=== PATIENT | female | born 1995 | race Caucasian/White ===

== ENCOUNTER 2020-11-11 10:33 | Day surgery (SDC) | payer OTHER ==
[2020-11-11] MEDS ORDERED: hydrALAZINE 20 MG/ML VIAL SLOW IVP PRN ×2 (11:40→17:45)
[2020-11-11 11:53] LABS: Bilirubin Neg (Negative); Blood, Urine 10 (Negative); Clarity Slightly Cloudy (Clear); Glucose, Urine (Dipstick) 250 mg/dL (Negative); Ketone, Urine 5 mg/dL (Negative); Leukocyte Negative (Negative); Nitrite Negative (Negative); Protein, Urine (Dipstick) 30 mg/dl (Neg-Trace); Urobilinogen Normal mg/dL (Less than 2)
[2020-11-11 12:06] LABS: Bacteria/HPF 1+ HPF (None Seen); RBC/HPF 0-3 HPF (0-3); Squamous Epithelial 0-3 HPF (0-3); WBC/HPF 0-3 HPF (0-3)
[2020-11-11] MEDS ORDERED: Fioricet 325/50/40 mg Tablet PO PRN (15:34)
[2020-11-11 16:15] LABS: #Eosinphils 0.1 10x3/uL (0.0-0.5); #Monocytes 0.6 10x3/uL (0.0-1.1); #Neutrophils 9.7 10x3/uL (1.5-8.4); %Basophils 0.2 % (0.0-2.0); %Eosinophils 0.4 % (0.0-6.0); %Lymphocytes 14.2 % (18.0-47.0); %Monocytes 4.7 % (0.0-10.0); %Neutrophils 79.8 % (40.0-75.0); Hemoglobin 11.8 g/dL (12.0-15.5); Mean Corpuscular HGB CONC 34.2 g/dL (32.0-36.0); Mean Corpuscular Hemoglobin 31.9 pg (27.0-33.0); Mean Corpuscular Volume 93.2 fl (81.6-98.3); Mean Platelet Volume 13.3 fl (7.4-10.4); White Blood Cell (WBC) Count 12.1 10x3/uL (3.5-10.5)
[2020-11-11 16:17] LABS: ALT (SGPT) 19 U/L (8-55); AST (SGOT) 15 U/L (5-34); Albumin 3.4 g/dL (3.5-5.0); Alkaline Phosphatase 65 U/L (40-110); Anion Gap 14 mmol/L (10-20); BUN (Urea Nitrogen) 5 mg/dL (7.0-18.7); Bilirubin, Total 0.2 mg/dL (0.2-1.2); Calc. Creatinine Clearance 0 mL/min (70-130); Calcium 8.9 mg/dL (7.8-10.44); Carbon Dioxide 21 mmol/L (22-29); Chloride 106 mmol/L (98-107); Globulin 2.7 g/dL (2.4-3.5); Glucose 118 mg/dL (70-105); Potassium 3.6 mmol/L (3.5-5.1); Protein, Total 6.1 g/dL (6.0-8.3); Sodium 137 mmol/L (136-145)
[2020-11-11 17:02] LABS: Creatinine, Urine 275.74 mg/dL (47-110)
[2020-11-11 17:08] LABS: Platelet Count 159 10x3/uL (150-450)
== END 2020-11-11 17:42 | disposition home or self-care (01) ==
LOC: CSHLD/OP 10:33
PROVIDERS: ATTEND Obstetrics & Gynecology
DX: O14.02 Mild to moderate pre-eclampsia, second trimester (principal); O99.332 Smoking (tobacco) complicating pregnancy, second trimester; F17.290 Nicotine dependence, other tobacco product, uncomplicated; Z3A.27 27 weeks gestation of pregnancy
CPT/HCPCS: 80053; 81001; 82570; 84156; 84550; 85025; 87086; 99284; 99285

== ENCOUNTER 2022-03-28 12:57 | Emergency (ER) | payer OTHER ==
[2022-03-28 14:07] LABS: Bilirubin Neg (Negative); Blood, Urine 250 (Negative); Glucose, Urine (Dipstick) Normal (Negative); Ketone, Urine 5 mg/dL (Negative); Leukocyte 500 (Negative); Nitrite Negative (Negative); Protein, Urine (Dipstick) 30 mg/dl (Neg-Trace); Specific Gravity, Urine 1.015 (1.005-1.030)
[2022-03-28 14:09] LABS: Clarity Cloudy (Clear)
[2022-03-28 14:18] LABS: RBC/HPF 0-3 HPF (0-3)
[2022-03-28 14:19] LABS: Bacteria/HPF Rare-Few HPF (None Seen)
== END 2022-03-28 14:00 | disposition home or self-care (01) ==
LOC: CSHERS 12:57
DX: O20.0 Threatened abortion (principal); O99.332 Smoking (tobacco) complicating pregnancy, second trimester; F17.290 Nicotine dependence, other tobacco product, uncomplicated; Z3A.14 14 weeks gestation of pregnancy
CPT/HCPCS: 81003; 81015; 99284

== ENCOUNTER 2022-09-16 09:34 | Inpatient (IN) | payer OTHER ==
[~2022-09-16 09:34] MED LIST: Bupivacaine 0.25% HCL 30 ML VIAL ONE
[2022-09-16] MEDS ORDERED: Promethazine HCl 25 MG/ML VIAL IM PRN ×3 (10:45→17:37)
[2022-09-16] MEDS ORDERED: Ibuprofen 800 MG TAB PO PRN (10:45)
[2022-09-16] MEDS ORDERED: Lidocaine 1% (PF) 30 ML VIAL SC PRN (10:45)
[2022-09-16] MEDS ORDERED: Misoprostol 200 MCG TAB PR PRN (10:45)
[2022-09-16] MEDS ORDERED: Butorphanol Tartrate 1 MG/ML VIAL SLOW IVP PRN (10:45)
[2022-09-16] MEDS ORDERED: Ondansetron PF 4 MG/2 ML Vial IVP PRN ×3 (10:45→17:37)
[2022-09-16] MEDS ORDERED: Diphenoxylate HCl/Atropine Tablet PO PRN ×2 (10:45)
[2022-09-16] MEDS ORDERED: HYDROcodone/Acetaminophen 5/325 mg Tablet PO PRN ×3 (10:45→17:37)
[2022-09-16] MEDS ORDERED: hydrALAZINE 20 MG/ML VIAL SLOW IVP PRN ×2 (10:45→17:37)
[2022-09-16] MEDS ORDERED: Acetaminophen 500 MG TAB PO PRN (10:45)
[2022-09-16] MEDS ORDERED: Lactated Ringer's 1,000 ML IV SCH (10:45)
[2022-09-16] MEDS ORDERED: NS w/ Oxytocin 30 units 500 ML IV SCH ×4 (10:45→17:37)
[2022-09-16] MEDS ORDERED: Carboprost 250 MCG/ML AMP IM PRN (10:45)
[2022-09-16 10:49] VITALS: BMI 38.7
[2022-09-16 11:29] LABS: Mean Corpuscular HGB CONC 33.3 g/dL (32.0-36.0); Mean Corpuscular Hemoglobin 29.3 pg (27.0-33.0); Mean Corpuscular Volume 87.8 fl (81.6-98.3); Mean Platelet Volume 13.9 fl (7.4-10.4); Platelet Count 162 10x3/uL (150-450); RBC Distribution Width 14.6 % (11.5-14.5); Red Blood Cell (RBC) Count 3.76 10x6/uL (3.90-5.03); White Blood Cell (WBC) Count 10.5 10x3/uL (3.5-10.5)
[2022-09-16 11:44] LABS: HBSAg Index 0.13 S/CO (0-0.99); Hep B Surf Ag - L&D Non-Reactive S/CO (NonReactive)
[2022-09-16 11:45] LABS: Syphilis Antibody Nonreactive (Nonreactive); Syphilis Antibody Index 0.02 S/CO (<1.00 Non-Reactive)
[2022-09-16 12:02] LABS: SARS-CoV-2 NAA Rapid Test Not Detected (NotDetected)
[2022-09-16] MEDS ORDERED: Fentanyl 2 mcg/Bup 0.1% Cadd 100 ML ONE (13:34)
[2022-09-16] MEDS ORDERED: Lactated Ringer's 500 ML IV PRN (14:16)
[2022-09-16] MEDS ORDERED: Naloxone HCl 0.4 mg/ml Vial IVP PRN ×2 (14:16)
[2022-09-16] MEDS ORDERED: Acetaminophen 325 MG TAB PO PRN (14:16)
[2022-09-16] MEDS ORDERED: Moisturizing Cream (Eucerin) 113 GM JAR TOP PRN (14:16)
[2022-09-16] MEDS ORDERED: ePHEDrine Sulfate 50 MG/10 ML VIAL SLOW IVP PRN (14:16)
[2022-09-16] MEDS ORDERED: diphenhydrAMINE 50 MG/ML VIAL IVP PRN (14:16)
[2022-09-16] MEDS ORDERED: Fentanyl 2 mcg/Bupivacaine 0.1% Cassette 100 ML EPIDURAL SCH (14:30)
[2022-09-16] MEDS ORDERED: Communication Order-Pharmacy FS SCH (14:30)
[2022-09-16] MEDS ORDERED: Oxytocin 10 UNITS/ML VIAL ONE (16:36)
[2022-09-16] MEDS ORDERED: Misoprostol 200 MCG TAB ONE (16:37)
[2022-09-16] MEDS ORDERED: Methylergonovine 0.2 MG/ML VIAL IM PRN (17:37)
[2022-09-16] MEDS ORDERED: Varicella virus, LIVE 0.5 ML VIAL SC ONE (17:37)
[2022-09-16] MEDS ORDERED: Measles/Mumps/Rubella 10 MCG/0.5 ML VIAL SC ONE (17:37)
[2022-09-16] MEDS ORDERED: diphenhydrAMINE 25 MG CAP PO PRN (17:37)
[2022-09-16] MEDS ORDERED: Misoprostol 200 MCG TAB VAG PRN (17:37)
[2022-09-16] MEDS ORDERED: Milk Of Magnesia 30 ML UDCUP PO PRN (17:37)
[2022-09-16] MEDS ORDERED: Zolpidem Tartrate 5 MG TAB PO PRN (17:37)
[2022-09-16] MEDS ORDERED: Lanolin Ointment 7 GM TUBE TOP PRN (17:37)
[2022-09-16] MEDS ORDERED: Preparation H Ointment 28 GM TUBE PR PRN (17:37)
[2022-09-16] MEDS ORDERED: Benzocaine-Menthol 82.5 ML CAN TOP PRN (17:37)
[2022-09-16] MEDS ORDERED: Boostrix 0.5 ML (Tdap) VIAL (>/=7 yrs of age) IM ONE (17:37)
[2022-09-16] MEDS ORDERED: Bisacodyl 10 MG SUPP PR PRN (17:37)
[2022-09-16] MEDS ORDERED: NS w/ Oxytocin 30 units 500 ML ONE (18:04)
[2022-09-16] MEDS ORDERED: Ferrous Sulfate 325 MG TAB PO SCH (19:00)
[2022-09-16] MEDS: Docusate 100 MG CAP PO SCH (20:07)
[2022-09-16] MEDS: Ibuprofen 800 MG TAB PO SCH (20:07)
[2022-09-17 03:43] LABS: Hemoglobin 9.4 g/dL (12.0-15.5); Mean Corpuscular HGB CONC 33.2 g/dL (32.0-36.0); Mean Corpuscular Hemoglobin 29.7 pg (27.0-33.0); Mean Corpuscular Volume 89.3 fl (81.6-98.3); Mean Platelet Volume 13.3 fl (7.4-10.4); Platelet Count 123 10x3/uL (150-450); RBC Distribution Width 14.6 % (11.5-14.5); Red Blood Cell (RBC) Count 3.17 10x6/uL (3.90-5.03); White Blood Cell (WBC) Count 10.6 10x3/uL (3.5-10.5)
[2022-09-17] MEDS: Ibuprofen 800 MG TAB PO SCH ×2 (06:05→14:30)
[2022-09-17] MEDS: Docusate 100 MG CAP PO SCH (08:13)
[2022-09-17] MEDS: Ferrous Sulfate 325 MG TAB PO SCH ×2 (08:13→18:26)
[2022-09-17] MEDS ORDERED: Prenatal Vitamin 1 TAB PO SCH (09:00)
[2022-09-17 11:03] VITALS: TEMP 98.8
[2022-09-17 15:52] VITALS: BP 136/75
== END 2022-09-17 18:20 | disposition home or self-care (01) | DRG 807 ==
LOC: CSHLD 09:34 → CSHPP 18:46
PROVIDERS: ADMIT Obstetrics & Gynecology; ATTEND Obstetrics & Gynecology
PROC: 10E0XZZ Delivery of Products of Conception, External Approach (ICD-10-PCS; principal; 2022-09-16)
DX: O99.344 Other mental disorders complicating childbirth (principal); Z37.0 Single live birth; Z3A.38 38 weeks gestation of pregnancy; F41.9 Anxiety disorder, unspecified; F32.A Depression, unspecified; K21.9 Gastro-esophageal reflux disease without esophagitis; O99.62 Diseases of the digestive system complicating childbirth; Z20.822 Contact with and (suspected) exposure to COVID-19
CPT/HCPCS: 36415; 51702; 85027; 86780; 86850; 86900; 86901; 87340; J2590; S0020; U0002

== ENCOUNTER 2023-04-20 07:56 | Emergency (ER) | payer OTHER ==
[2023-04-20 09:20] LABS: Pregnancy Test - Urine (BHCG) Negative (Negative); Pregu Control Background? CLEAR/WHITE (CLR/WHITE); Pregu Control Bar Appear? YES (CONTROL BAR)
[2023-04-20] MEDS ORDERED: metroNIDAZOLE 500 MG TAB ONE (09:55)
[2023-04-20] MEDS ORDERED: Doxycycline 100 MG VIAL ONE (09:55)
[2023-04-20] MEDS ORDERED: cefTRIAXone (ROCEPHIN) 500 MG VIAL ONE (09:56)
[2023-04-20] MEDS ORDERED: Sterile Water 10 ML ONE (10:00)
[2023-04-20] MEDS ORDERED: Doxycycline 100 MG CAP PO SCH (10:15)
== END 2023-04-20 10:17 | disposition home or self-care (01) ==
LOC: CSHERS 07:56
DX: N76.0 Acute vaginitis (principal); Z20.2 Contact with and (suspected) exposure to infections with a predominantly sexual mode of transmission
CPT/HCPCS: 81025; 96372; 99283; J0696